=== PATIENT | female | born 1955 | race Caucasian/White ===

== ENCOUNTER 2016-03-02 09:40 | Emergency (ER) | payer BC ==
[~2016-03-02] VITALS: Ht 160 cm; Wt 111.9 kg
[2016-03-02] MEDS ORDERED: cloNIDine 0.2 MG (CATAPRES) TAB PO ONE (10:00)
[2016-03-02] MEDS ORDERED: SODIUM CHLORIDE FLUSH 3 ML SYR IV PRN (10:10)
[2016-03-02] MEDS ORDERED: SODIUM CHLORIDE FLUSH 10 ML SYR IV PRN (10:10)
[2016-03-02 10:11] LABS: BASOPHILS % (AUTO) 1 % (0-2); EOSINOPHILS # (AUTO) 0.1 10^3uL; EOSINOPHILS % (AUTO) 2 % (0-4); LYMPHOCYTES # (AUTO) 1.4 X10^3; MEAN CORPUSCULAR HGB CONC 33.7 g/dL (31.0-37.0); MEAN CORPUSCULAR VOLUME 89 FL (80-100); MONOCYTES # (AUTO) 0.5 X10^3; MONOCYTES % (AUTO) 8 % (3-11); NEUTROPHILS # (AUTO) 3.8 X10^3; NEUTROPHILS % (AUTO) 65 % (51-67); PLATELET COUNT 220 10^3uL (150-450); WHITE BLOOD COUNT 5.83 10^3uL (4.0-11.0)
--- NOTE | 2016-03-02 10:13 | NUR ---
Pt states headache on right side of head 08/15
[2016-03-02 10:15] LABS: BILIRUBIN,URINE Negative (Negative); CLARITY,URINE Clear; COLOR,URINE Yellow; GLUCOSE, URINE (UA) Negative (Negative); LEUKOCYTE ESTERASE ,URINE 1+ (Negative); UROBILINOGEN,URINE 0.2 mg/dL (0.2-1.0)
--- NOTE | 2016-03-02 10:17 | NUR ---
nurse giving meds
[2016-03-02 10:21] LABS: ALBUMIN 4.3 g/dL (3.4-5.0); ANION GAP 13.3 MEQ/L (3-15); CALCULATED IONIZED CALCIUM 4.3 mg/dL (3.8-4.6)
[2016-03-02 10:39] LABS: URINE CENTRIFUGED VOLUME 10 mL
[2016-03-02] MEDS ORDERED: ACETAMINOPHEN 500 MG TAB (TYLENOL) PO ONE (12:10)
--- NOTE | 2016-03-02 12:20 | NUR ---
pt given tylenol
[2016-03-02 13:05] VITALS: BP 137/64
--- NOTE | 2016-03-02 13:14 | NUR ---
called in a script to [facility] i bid po x 5 days, per dr. trisha pichardo
== END 2016-03-02 13:10 | disposition home or self-care (01) ==
LOC: EDUNIT# 09:40 → ED 09:45
DX: I10 Essential (primary) hypertension (principal); R51 Headache
CPT/HCPCS: 36415; 70450; 71010; 80053; 81003; 81015; 85025; 87088; 93005; 93010; 99284; 99285

== ENCOUNTER 2016-06-25 12:04 | Emergency (ER) | payer BC ==
[~2016-06-25] VITALS: Ht 160 cm; Wt 105.0 kg
--- OUTSIDE RECORDS SUMMARY | 2016-06-25 12:08 | XMS REPORT | Continuity of Care Document ---
Author Author [facility] Address Unknown Phone Unavailable Care Team Providers Care Finance Business Partner Name Role Phone CATE HOWELL MD PCP [phone] Insurance Providers Payer Name Policy Number Subscriber Name Relationship [facility] [id number] Betzaida Dickerson 01 Advance Directives Directive Response Recorded Date/Time Advanced Directives No 03/02/16 9:55am Chief Complaint and Reason for Visit Chief Complaint Cardiac Complaint Reason for Visit Elevated blood pressure reading Lightheadedness Headache Problems Active Problems Medical Problem Onset Date Status Elevated blood pressure reading Unknown Acute Headache Unknown Acute Lightheadedness Unknown Acute Medications Current Home Medications Medication Dose Units Route Directions Days/Qty Instructions Start Date Clonidine Hcl 0.1 Mg 0.1 Mg ORAL Every 8HRS 8 03/02/16 Telmisartan/Hydrochlorothiazid 1 Each 1 Each ORAL Daily 30 03/02/16 Social History Query Response Start Date Stop Date Smoking Status Current some day smoker Hospital Discharge Instructions No hospital discharge instructions. Plan of Care Discharge Date 03/02/16 1:10pm Disposition 01 HOME OR SELF-CARE Condition at Discharge Stable Instructions/Education Provided High Blood Pressure in Adults Prescriptions See Medication Section Referrals CATE HOWELL MD - Additional Instructions/Education Restart Micardis/HCTZ 20/12.5 daily. If you get a blood pressure higher than 190 for the top number, sit down and rest and take it again in 5-10 minutes. If it is still higher than 190, take a clonidine 0.1 mg tablet. If it is still higher than 190 in 2 hours, take another tablet. Follow up with Dr. Howell in 1-2 weeks. Return if symptoms worsen Some of your test results may not be complete prior to your leaving the Emergency Department. The Emergency Department is not authorized to give test results over the phone. Please contact the doctor's office listed in this packet of information for your final results. Follow up with your primary care physician or return to the Emergency Department for worsening or worrisome symptoms. * Emergency Department phone number: [phone], x [phone]* MEDICAL RECORD If you need copies of your X-rays, call [phone]. If you need copies of your medical record, including lab results, a signed authorization for release of records will be required. A telephone call for release of Health Information is not allowed. BILLING Billing can sometimes be confusing and frustrating. To help avoid confusion in the future, please take a moment to acquaint yourself with the billing parties for services. SERVICE BILLING [employer] [employer] Emergency Room Services [facility] Physician Services [facility] X-[facility] Patients will receive bills for services from the appropriate provider. If you have any questions about your [facility] bill, our staff will be happy to assist you. Please call [phone], and ask for the billing department. THANK YOU for choosing [facility] as your emergency care provider! Care Plan and Goals ~~Discharge Care Plan~~ Problem:dizzy and high blood pressures Goal:decreased dizziness and high blood pressure Instructions:follow up with pcp Functional Status No functional status results. Allergies, Adverse Reactions, Alerts Allergen Type Severity Reaction Status Last Updated Penicillin Allergy Unknown Active 03/02/16 Immunizations No immunization records. Vital Signs Acute Vital Signs Vital Response Date/Time Temperature (Fahrenheit) 97.5 03/02/2016 9:55am Pulse 42 bpm 03/02/2016 1:05pm Respirations 17 03/02/2016 1:05pm Height 5 ft 3 in Weight 246 lb Body Mass Index 43.0 kg/m^2 Results Laboratory Results Test Name Result Units Flags Reference Collection Date/Time Result Date/ Time Comments White Blood Count 5.83 10^3uL 4.0-11.0 03/02/2016 10:05am 03/02/2016 10 :12am Red Blood Count 4.56 10^6uL 4.00-5.00 03/02/2016 10:05am 03/02/2016 10: 12am Hemoglobin 13.7 g/dL 12.0-15.5 03/02/2016 10:05am 03/02/2016 10:12am Hematocrit 40.70 % 35.00-45.00 03/02/2016 10:05am 03/02/2016 10:12am Mean Corpuscular Volume 89 FL 80-100 03/02/2016 10:05am 03/02/2016 10: 12am Mean Corpuscular Hemoglobin 30.0 PG 26.0-34.0 03/02/2016 10:05am 2016 10:12am Mean Corpuscular Hemoglobin Concent 33.7 g/dL 31.0-37.0 03/02/2016 10: 05am 03/02/2016 10:12am Red Cell Distribution Width 13.5 % 11.8-15.6 03/02/2016 10:05am 2016 10:12am Platelet Count 220 10^3uL 150-450 03/02/2016 10:05am 03/02/2016 10: 12am Mean Platelet Volume 11.0 FL H 6.0-9.5 03/02/2016 10:05am 03/02/2016 10: 12am Neutrophils (%) (Auto) 65 % 51-67 03/02/2016 10:05am 03/02/2016 10: 12am Lymphocytes (%) (Auto) 24 % 20-46 03/02/2016 10:05am 03/02/2016 10: 12am Monocytes (%) (Auto) 8 % 3-11 03/02/2016 10:05am 03/02/2016 10:12am Eosinophils (%) (Auto) 2 % 0-4 03/02/2016 10:05am 03/02/2016 10:12am Basophils (%) (Auto) 1 % 0-2 03/02/2016 10:05am 03/02/2016 10:12am Neutrophils # (Auto) 3.8 X10^3 03/02/2016 10:05am 03/02/2016 10:12am Lymphocytes # (Auto) 1.4 X10^3 03/02/2016 10:05am 03/02/2016 10:12am Monocytes # (Auto) 0.5 X10^3 03/02/2016 10:05am 03/02/2016 10:12am Eosinophils # (Auto) 0.1 10^3uL 03/02/2016 10:05am 03/02/2016 10: 12am Basophils # (Auto) 0.0 10^3uL 03/02/2016 10:05am 03/02/2016 10:12am Volume Urine Centrifuged 10 mL 03/02/2016 9:50am 03/02/2016 10: 39am Urine Collection Type RANDOM VOIDED 03/02/2016 9:50am 03/02/2016 10 :39am Urine Color Yellow 03/02/2016 9:50am 03/02/2016 10:20am Urine Clarity Clear 03/02/2016 9:50am 03/02/2016 10:20am Urine pH 7.0 5.0 - 8.0 03/02/2016 9:50am 03/02/2016 10:20am Urine Specific [place] 1.020 1.005-1.030 03/02/2016 9:50am 2016 10:20am Urine Protein Negative Negative 03/02/2016 9:50am 03/02/2016 10:20am Urine Glucose (UA) Negative Negative 03/02/2016 9:50am 03/02/2016 10: 20am Urine Blood Trace-lysed H Negative 03/02/2016 9:50am 03/02/2016 10: 20am Urine Ketones Negative Negative 03/02/2016 9:50am 03/02/2016 10:20am Urine Nitrite Negative Negative 03/02/2016 9:50am 03/02/2016 10:20am Urine Bilirubin Negative Negative 03/02/2016 9:50am 03/02/2016 10: 20am Urine Urobilinogen 0.2 mg/dL 0.2-1.0 03/02/2016 9:50am 03/02/2016 10: 20am Urine Leukocyte Esterase 1+ H Negative 03/02/2016 9:50am 03/02/2016 10 :20am Urine Microscopic RBC 2-5 /HPF 03/02/2016 9:50am 03/02/2016 10:39am Urine WBC 20-50 /HPF H 03/02/2016 9:50am 03/02/2016 10:39am Urine Bacteria None Seen /HPF 03/02/2016 9:50am 03/02/2016 10:39am Urine Squamous Epithelial Cells 5-10 /LPF 03/02/2016 9:50am 2016 10:39am Sodium Level 142 mmol/L 135-150 03/02/2016 10:05am 03/02/2016 10:21am Potassium Level 4.2 mmol/L 3.5-5.1 03/02/2016 10:05am 03/02/2016 10: 21am Chloride Level 105 mmol/L 98-108 03/02/2016 10:05am 03/02/2016 10:21am Carbon Dioxide Level 28 mmol/L 22-29 03/02/2016 10:05am 03/02/2016 10: 21am Anion Gap 13.3 MEQ/L 3-15 03/02/2016 10:05am 03/02/2016 10:21am Blood Urea Nitrogen 12 mg/dL 7-18 03/02/2016 10:05am 03/02/2016 10: 21am Creatinine 0.69 mg/dL 0.6-1.2 03/02/2016 10:05am 03/02/2016 10:21am BUN/Creatinine Ratio 17 10-20 03/02/2016 10:05am 03/02/2016 10:21am Estimat Glomerular Filtration Rate 104.7 03/02/2016 10:05am 2016 10:21am Estimated GFR (Non- 86.5 03/02/2016 10:05am 2016 10:21am Glucose Level 112 mg/dL H 70-110 03/02/2016 10:05am 03/02/2016 10:21am Calculated Osmolality 275 mosm/L L 280-300 03/02/2016 10:05am 2016 10:21am Calcium Level 10.4 mg/dL 8.8-10.8 03/02/2016 10:05am 03/02/2016 10: 21am Calcium/Ionized Calcium Ratio 4.3 mg/dL 3.8-4.6 03/02/2016 10:05am 10:21am Total Bilirubin 0.8 mg/dL 0.1-1.0 03/02/2016 10:05am 03/02/2016 10: 21am Alkaline Phosphatase 99 U/L 38-126 03/02/2016 10:05am 03/02/2016 10: 21am Aspartate Amino Transf (AST/SGOT) 24 U/L 15-37 03/02/2016 10:05am 03/02 10:21am Alanine Aminotransferase (ALT/SGPT) 34 U/L 30-65 03/02/2016 10:05am 10:21am Total Protein 8.0 g/dL 6.4-8.5 03/02/2016 10:05am 03/02/2016 10:21am Albumin 4.3 g/dL 3.4-5.0 03/02/2016 10:05am 03/02/2016 10:21am Albumin/Globulin Ratio 1.162 1.1-1.8 03/02/2016 10:05am 03/02/2016 10 :21am Procedures No known history of procedures. Encounters Encounter Location Arrival/Admit Date Discharge/Depart Date Attending Provider Registered Emergency Room [facility] 03/02/16 9:45am MARYJO VALENZUELA MD Recent Diagnosis
[2016-06-25] MEDS: cloNIDine 0.2 MG (CATAPRES) TAB PO ONE ×2 (12:20→12:35)
--- NOTE | 2016-06-25 12:41 | NUR ---
Was going to admin. 0.2mg clonidine ordered for this patient, recent blood pressure was 148/47 and pulse ranging between 45-52. Reported to Dr. Diggs before giving, instructions to hold at this time and he will talk to patient. Patient still reports having a headach.
[2016-06-25] MEDS ORDERED: KETOROLAC 60 MG/2 ML (TORADOL) VIAL IM ONE (13:10)
[2016-06-25 14:11] VITALS: BP 153/61
--- NOTE | 2016-06-25 14:57 | NUR ---
Clonidine 0.2mg not given d/t blood pressure with in normanl limits. Dc'd by doctor, wasted medication, Nicole payton.
== END 2016-06-25 14:14 | disposition home or self-care (01) ==
LOC: ED 12:06
DX: I10 Essential (primary) hypertension (principal); R51 Headache
CPT/HCPCS: 96372; 99283; J1885; 99282

== ENCOUNTER → 2016-06-25 | Outpatient (CLI) | payer BC ==
[~2016-06-25] MED LIST: CLON0.1T PO; TELM1TAB3 PO
[2016-06-25 11:59] VITALS: BP 192/84
--- NOTE | 2016-06-25 11:59 | Urgent Care T Sheet Gen (E) ---
Intake General Temperature (Fahrenheit): 97.9 Pulse: 73 Blood Pressure Systolic: 192 Blood Pressure Diastolic: 84 Respirations: 19 SPO2: 97 Chief Complaint: High Blood pressure Description of Symptoms 61 year female presents with concerns regarding her blood pressure. State she has a headache. Was unable to get in to PCP yesterday. Denies chest pain or soa. Source: Patient History of Present Illness Recent Trauma: No Similar Sympotms Previously: Yes Allergies: Coded Allergies: Penicillins (Verified Allergy, Unknown, 03/02/16) Home Meds Active Scripts Telmisartan/Hydrochlorothiazid (Micardis HCT 80-12.5 mg Tablet)1 Each Tablet1 Each PO DAILY #30 TAB Prov:MARYJO VALENZUELA MD 03/02/16 Clonidine HCl 0.1 Mg Tablet0.1 Mg PO Q8H #8 TAB Prov:MARYJO VALENZUELA MD 03/02/16 Respiratory Constitutional Symptoms: Other (High blood pressure) Neurological: Headache All Other Systems Reviewed Remaining Systems: All other systems reviewed with negative findings Past Axnlzes-Tdbuvq-Gcrswz Hx Patient's Social History Alcohol Use: Denies Use Smoking Status: Current some day smoker Surgeries/Hospitalizations Hospitalization/Surgery Hx: tonsils High BP/Heart, mild heart attack 2012 Respiratory Respiratory History: None Cardiovascular Cardiovascular History: Hypertension, [place] (Heart Attack) Comment: 2012 mild heart attack Reproductive System Sexually Transmitted Diseases: No Gastrointestinal GI/Endocrine History: Heartburn HEENT Impaired Vision: Glasses Hearing Impaired: None Psychosocial Behavior Disorders: Depression Physical Exam Physical Exam General Appearance: WD/WN No apparent distress Departure Urgent Care Impression Chief Complaint: High Blood pressure Impression: Primary Impression: Elevated blood pressure reading Departure Departed Disposition: To [facility] ED Condition: Stable Referrals: CATE HOWELL MD (PCP) Additional Instructions: Advised patient that she needs to go to ED for further work up on HTN. Offered to call EMS or a friend and pt declined. Pt states that she will go immediately to ED and understands the risks that driving herself entails. She verbalized understanding and declined further assistance. End of report . BRINDA BLAIR APRN June 25, 2016 11:59
== END ==
LOC: MHUC 11:46
PROVIDERS: ATTEND Nurse Practitioner Family
DX: R03.0 Elevated blood-pressure reading, without diagnosis of hypertension (principal)